=== PATIENT | female | born 1955 | race Caucasian/White ===

== ENCOUNTER 2017-08-10 23:46 | Inpatient (IN) | payer BC ==
[~2017-08-10] VITALS: Ht 165.1 cm; Wt 59.4 kg
[2017-08-10 23:05] VITALS: BP 117/60
[2017-08-10 23:13] VITALS: BP 117/60
[2017-08-11] VITALS (11 sets, daily range): BP systolic 96–120; BP diastolic 49–81
[2017-08-11] MEDS ORDERED: ASPI-1159 PO (00:44)
[2017-08-11] MEDS ORDERED: MORPHINE SULFATE 2 MG/ML CPJ (NOT FOR IM USE) IV PRN (00:45)
[2017-08-11] MEDS ORDERED: DEXTROSE 50% WATER 50ML SYRINGE IV PRN (00:45)
[2017-08-11] MEDS ORDERED: DOCU-138 PO (00:46)
[2017-08-11] MEDS ORDERED: RAMI2.5C10 PO (00:53)
[2017-08-11] MEDS ORDERED: GABA-531 PO (00:53)
[2017-08-11] MEDS ORDERED: FAMO-134 PO (00:53)
[2017-08-11] MEDS ORDERED: ATOR-2 PO (00:53)
[2017-08-11] MEDS ORDERED: HEPARIN 25,000 UNITS PREMIX 500 ML IV SCH (01:30)
[2017-08-11] MEDS ORDERED: HEPARIN BOLUS PRN aPTT <30 IV (03:00)
[2017-08-11] MEDS ORDERED: HEPARIN BOLUS PRN aPTT 30-44 IV (03:00)
[2017-08-11 05:47] LABS: BASOPHILS % 0.6 % (0.0-2.0); EOSINOPHILS % 3.9 % (0.0-5.0); HEMATOCRIT. 44.7 % (36.0-48.0); HEMOGLOBIN. 14.8 g/dL (12.0-16.0); LYMPHOCYTES % 40.1 % (20.0-50.0); MEAN CORPUSCULAR HEMOGLOBIN 29.7 pg (28.0-32.0); MEAN CORPUSCULAR VOLUME 89.5 fL (81.0-99.0); MEAN PLATELET VOLUME 8.3 fl (7.4-10.4); MONOCYTES % 9.8 % (2.0-8.0); NEUTROPHILS % 45.6 % (40.0-76.0); PLATELET 234 x1000/uL (130-400); RED BLOOD CELL COUNT 4.99 mill/uL (4.2-5.4); RED CELL DISTRIBUTION WIDTH 13.3 % (11.6-14.6)
[2017-08-11] MEDS: HEPARIN 25,000 UNITS PREMIX 500 ML IV SCH (06:06)
[2017-08-11 06:22] LABS: CARBON DIOXIDE 27 mEq/L (21-32); CHLORIDE 101 mEq/L (98-107)
[2017-08-11] MEDS: BLOOD SUGAR DIAGNOSTIC STRIP TEST SCH ×4 (06:31→21:09)
[2017-08-11] MEDS: INSULIN LISPRO 100 UNITS/ML SUBCUT SCH ×4 (07:41→20:59)
[2017-08-11] MEDS: CARVEDILOL 6.25 MG TABLET PO SCH ×2 (09:40→21:00)
[2017-08-11] MEDS: ASPIRIN 81MG EC TABLET PO SCH (10:00)
[2017-08-11] MEDS ORDERED: ASPIRIN 81MG EC TABLET PO SCH (20:00)
[2017-08-11] MEDS: FAMOTIDINE 20MG TABLET PO SCH (21:01)
[2017-08-11] MEDS: ATORVASTATIN CALCIUM 40MG TABLET PO SCH (21:01)
[2017-08-11] MEDS: DOCUSATE SODIUM 100MG CAPSULE PO SCH (21:02)
[2017-08-11] MEDS: GABAPENTIN 300MG CAPSULE PO SCH (21:03)
[2017-08-12] VITALS (12 sets, daily range): BP systolic 105–130; BP diastolic 58–82
[2017-08-12] MEDS: BLOOD SUGAR DIAGNOSTIC STRIP TEST SCH ×4 (06:15→20:48)
[2017-08-12] MEDS: INSULIN LISPRO 100 UNITS/ML SUBCUT SCH ×4 (06:15→21:20)
[2017-08-12 06:35] LABS: BASOPHILS % 0.6 % (0.0-2.0); EOSINOPHILS % 3.5 % (0.0-5.0); HEMATOCRIT. 44.3 % (36.0-48.0); HEMOGLOBIN. 14.7 g/dL (12.0-16.0); LYMPHOCYTES % 42.2 % (20.0-50.0); MEAN CORPUSCULAR HEMOGLOBIN 29.9 pg (28.0-32.0); MEAN CORPUSCULAR VOLUME 89.9 fL (81.0-99.0); MEAN PLATELET VOLUME 9.5 fl (7.4-10.4); MONOCYTES % 9.8 % (2.0-8.0); NEUTROPHILS % 43.9 % (40.0-76.0); PLATELET 215 x1000/uL (130-400); RED BLOOD CELL COUNT 4.93 mill/uL (4.2-5.4); RED CELL DISTRIBUTION WIDTH 13.4 % (11.6-14.6)
[2017-08-12 06:52] LABS: CARBON DIOXIDE 26 mEq/L (21-32); CHLORIDE 104 mEq/L (98-107)
[2017-08-12] MEDS: GABAPENTIN 300MG CAPSULE PO SCH ×2 (08:53→17:12)
[2017-08-12] MEDS: CARVEDILOL 6.25 MG TABLET PO SCH ×2 (08:53→21:19)
[2017-08-12] MEDS: FAMOTIDINE 20MG TABLET PO SCH (08:53)
[2017-08-12] MEDS: ASPIRIN 81MG EC TABLET PO SCH (08:53)
[2017-08-12] MEDS: DOCUSATE SODIUM 100MG CAPSULE PO SCH ×2 (08:54→17:12)
[2017-08-12] MEDS: POLYETHYLENE GLYCOL 3350 (17GM) 1 DOSE PACK PO SCH (09:38)
[2017-08-12] MEDS ORDERED: INSULIN DETEMIR UD 100 UNITS/ML SYR SUBCUT SCH (10:30)
[2017-08-12 11:45] LABS: CLARITY URINE CLEAR (CLEAR); COLOR URINE YELLOW (YELLOW); GLUCOSE URINE 3+ (NEGATIVE); KETONES URINE NEGATIVE (NEGATIVE); LEUKOCYTE ESTERASE URINE NEGATIVE (NEGATIVE); NITRITE URINE NEGATIVE (NEGATIVE); OCCULT BLOOD URINE NEGATIVE (NEGATIVE); PH URINE 6.5 (4.5-8.0); PROTEIN URINE NEGATIVE (NEGATIVE); SPECIFIC GRAVITY URINE 1.013 (1.005-1.030)
[2017-08-12 12:04] LABS: *AMPHETAMINES SCREEN URINE NEGATIVE (NEGATIVE); *BARBITURATES SCREEN URINE NEGATIVE (NEGATIVE); *BENZODIAZEPINES SCREEN URINE NEGATIVE (NEGATIVE); *COCAINE SCREEN URINE NEGATIVE (NEGATIVE); CANNABINOID URINE SCREEN NEGATIVE (NEGATIVE); METHADONE URINE SCREEN NEGATIVE (NEGATIVE); OPIATES URINE SCREEN NEGATIVE (NEGATIVE); PHENCYCLIDINE URINE SCREEN NEGATIVE (NEGATIVE)
[2017-08-12] MEDS: HEPARIN 25,000 UNITS PREMIX 500 ML IV SCH (12:53)
[2017-08-12] MEDS: ATORVASTATIN CALCIUM 40MG TABLET PO SCH (21:20)
[2017-08-13] VITALS (12 sets, daily range): BP systolic 93–134; BP diastolic 53–79
[2017-08-13] MEDS: BLOOD SUGAR DIAGNOSTIC STRIP TEST SCH ×4 (07:26→20:37)
[2017-08-13] MEDS: INSULIN LISPRO 100 UNITS/ML SUBCUT SCH ×4 (07:30→20:42)
[2017-08-13] MEDS: FAMOTIDINE 20MG TABLET PO SCH (10:52)
[2017-08-13] MEDS: ASPIRIN 81MG EC TABLET PO SCH (10:52)
[2017-08-13] MEDS: DOCUSATE SODIUM 100MG CAPSULE PO SCH ×2 (10:52→17:48)
[2017-08-13] MEDS: GABAPENTIN 300MG CAPSULE PO SCH ×2 (10:52→17:49)
[2017-08-13] MEDS: INSULIN DETEMIR UD 100 UNITS/ML SYR SUBCUT SCH (10:52)
[2017-08-13] MEDS: POLYETHYLENE GLYCOL 3350 (17GM) 1 DOSE PACK PO SCH (10:53)
[2017-08-13] MEDS: CARVEDILOL 6.25 MG TABLET PO SCH ×2 (10:55→20:36)
[2017-08-13] MEDS: HEPARIN 25,000 UNITS PREMIX 500 ML IV SCH (20:10)
[2017-08-13] MEDS: ATORVASTATIN CALCIUM 40MG TABLET PO SCH (20:36)
[2017-08-13] MEDS ORDERED: BISACODYL 10MG SUPP PR PRN (20:45)
[2017-08-13] MEDS ORDERED: DOCUSATE SODIUM 250MG CAPSULE PO PRN (20:45)
[2017-08-13] MEDS ORDERED: BISACODYL 5MG TABLET PO PRN (20:45)
[2017-08-13] MEDS ORDERED: MAGNESIUM HYDROXIDE 400MG/5ML 30ML UDC PO PRN (20:45)
[2017-08-13] MEDS ORDERED: LACTULOSE 20G/30ML UDC PO PRN (20:45)
[2017-08-14] VITALS (13 sets, daily range): BP systolic 97–118; BP diastolic 50–67
[2017-08-14] MEDS: BLOOD SUGAR DIAGNOSTIC STRIP TEST SCH ×4 (06:58→21:05)
[2017-08-14 07:33] LABS: BASOPHILS % 0.7 % (0.0-2.0); EOSINOPHILS % 2.1 % (0.0-5.0); HEMATOCRIT. 46.9 % (36.0-48.0); HEMOGLOBIN. 15.2 g/dL (12.0-16.0); LYMPHOCYTES % 44.1 % (20.0-50.0); MEAN CORPUSCULAR HEMOGLOBIN 29.2 pg (28.0-32.0); MEAN CORPUSCULAR VOLUME 89.9 fL (81.0-99.0); MEAN PLATELET VOLUME 9.6 fl (7.4-10.4); NEUTROPHILS % 46.1 % (40.0-76.0); PLATELET 181 x1000/uL (130-400); RED BLOOD CELL COUNT 5.21 mill/uL (4.2-5.4); RED CELL DISTRIBUTION WIDTH 13.4 % (11.6-14.6)
[2017-08-14] MEDS: INSULIN LISPRO 100 UNITS/ML SUBCUT SCH ×4 (08:04→21:08)
[2017-08-14] MEDS: GABAPENTIN 300MG CAPSULE PO SCH ×2 (08:06→17:11)
[2017-08-14] MEDS: ASPIRIN 81MG EC TABLET PO SCH (08:06)
[2017-08-14] MEDS: FAMOTIDINE 20MG TABLET PO SCH (08:06)
[2017-08-14] MEDS: DOCUSATE SODIUM 100MG CAPSULE PO SCH ×2 (08:06→17:11)
[2017-08-14] MEDS: POLYETHYLENE GLYCOL 3350 (17GM) 1 DOSE PACK PO SCH (08:09)
[2017-08-14 08:29] LABS: CARBON DIOXIDE 29 mEq/L (21-32); CHLORIDE 98 mEq/L (98-107)
[2017-08-14] MEDS: CARVEDILOL 6.25 MG TABLET PO SCH ×2 (08:34→11:18)
[2017-08-14] MEDS ORDERED: IOHEXOL-350 100 ML BOTTLE ONE (10:13)
[2017-08-14] MEDS: INSULIN DETEMIR UD 100 UNITS/ML SYR SUBCUT SCH (11:19)
[2017-08-14] MEDS: ATORVASTATIN CALCIUM 40MG TABLET PO SCH (21:05)
[2017-08-15] VITALS (23 sets, daily range): BP systolic 94–127; BP diastolic 45–75
[2017-08-15] MEDS: HEPARIN 25,000 UNITS PREMIX 500 ML IV SCH (01:58)
[2017-08-15] MEDS: BLOOD SUGAR DIAGNOSTIC STRIP TEST SCH ×4 (06:02→21:00)
[2017-08-15] MEDS ORDERED: SODIUM CHLORIDE 0.45% 1,000 ML IV SCH (07:00)
[2017-08-15 07:19] LABS: PARTIAL THROMBOPLASTIN TIME 45.3 sec (23.4-31.0); PROTHROMBIN TIME 10.8 sec (9.4-11.6)
[2017-08-15 07:20] LABS: BASOPHILS % 0.7 % (0.0-2.0); EOSINOPHILS % 2.6 % (0.0-5.0); HEMATOCRIT. 46.7 % (36.0-48.0); MEAN CORPUSCULAR HEMOGLOBIN 29.1 pg (28.0-32.0); MEAN CORPUSCULAR VOLUME 90.2 fL (81.0-99.0); MEAN PLATELET VOLUME 9.8 fl (7.4-10.4); MONOCYTES % 6.8 % (2.0-8.0); NEUTROPHILS % 52.9 % (40.0-76.0); PLATELET 172 x1000/uL (130-400); RED BLOOD CELL COUNT 5.17 mill/uL (4.2-5.4); RED CELL DISTRIBUTION WIDTH 13.3 % (11.6-14.6)
[2017-08-15] MEDS: INSULIN LISPRO 100 UNITS/ML SUBCUT SCH ×4 (07:20→21:00)
[2017-08-15 07:55] LABS: CARBON DIOXIDE 29 mEq/L (21-32); CHLORIDE 102 mEq/L (98-107)
[2017-08-15] MEDS ORDERED: IODIXANOL 320MG/ML 200ML BOTTLE ONE (08:03)
[2017-08-15] MEDS ORDERED: LIDOCAINE HCL 1% 20ML VIAL (Pyxis) INJ ONE (08:04)
[2017-08-15] MEDS ORDERED: IOVERSOL 240MG/ML 100ML BOTTLE IV ONE (08:06)
[2017-08-15] MEDS ORDERED: FENTANYL CITRATE/PF 50MCG/ML 2ML VIAL ONE ×2 (08:30→10:56)
[2017-08-15] MEDS ORDERED: MIDAZOLAM HCL 2 MG/2 ML VIAL ONE (08:31)
[2017-08-15] MEDS: CARVEDILOL 6.25 MG TABLET PO SCH ×2 (09:00→21:23)
[2017-08-15] MEDS: GABAPENTIN 300MG CAPSULE PO SCH ×2 (09:00→17:08)
[2017-08-15] MEDS: FAMOTIDINE 20MG TABLET PO SCH (09:00)
[2017-08-15] MEDS: DOCUSATE SODIUM 100MG CAPSULE PO SCH ×3 (09:00→17:08)
[2017-08-15] MEDS: POLYETHYLENE GLYCOL 3350 (17GM) 1 DOSE PACK PO SCH (09:00)
[2017-08-15] MEDS ORDERED: IODIXANOL 320MG/ML 100 ML BOTTLE IV ONE (09:52)
[2017-08-15] MEDS ORDERED: ATROPINE SULFATE 0.1MG/ML 10ML DISP.SYRIN ONE (10:34)
[2017-08-15] MEDS ORDERED: CLOPIDOGREL 75MG TABLET ONE (11:08)
[2017-08-15] MEDS ORDERED: NICARDIPINE 100MCG/ML 10ML VIAL (CATH LAB) IV ONE (11:25)
[2017-08-15] MEDS ORDERED: HEPARIN SODIUM 1,000 UNIT/1ML VIAL IV ONE (11:25)
[2017-08-15] MEDS ORDERED: PHENYLEPHRINE 100MCG/ML 10ML VIAL (CATH LAB) IV ONE (11:25)
[2017-08-15] MEDS ORDERED: NITROGLYCERIN 50MCG/ML 10ML VIAL (CATH LAB) IV ONE (11:25)
[2017-08-15] MEDS: SODIUM CHLORIDE 0.45% 1,000 ML IV SCH ×2 (14:20→19:30)
[2017-08-15] MEDS ORDERED: ZOLPIDEM TARTRATE 5MG TABLET PO PRN (16:00)
[2017-08-15] MEDS: ONDANSETRON HCL 4MG/2ML VIAL IV PRN (18:10)
[2017-08-15] MEDS: ATORVASTATIN CALCIUM 40MG TABLET PO SCH (21:24)
[2017-08-16] VITALS (17 sets, daily range): BP systolic 93–129; BP diastolic 42–70
[2017-08-16] MEDS: SODIUM CHLORIDE 0.45% 1,000 ML IV SCH (03:30)
[2017-08-16] MEDS: ONDANSETRON HCL 4MG/2ML VIAL IV PRN (05:22)
[2017-08-16 05:44] LABS: BASOPHILS % 0.4 % (0.0-2.0); EOSINOPHILS % 0.7 % (0.0-5.0); HEMATOCRIT. 41.6 % (36.0-48.0); HEMOGLOBIN. 13.5 g/dL (12.0-16.0); LYMPHOCYTES % 21.4 % (20.0-50.0); MEAN CORPUSCULAR VOLUME 89.6 fL (81.0-99.0); MEAN PLATELET VOLUME 9.3 fl (7.4-10.4); NEUTROPHILS % 70.5 % (40.0-76.0); PLATELET 153 x1000/uL (130-400); RED BLOOD CELL COUNT 4.64 mill/uL (4.2-5.4); RED CELL DISTRIBUTION WIDTH 13.3 % (11.6-14.6)
[2017-08-16 06:06] LABS: CARBON DIOXIDE 29 mEq/L (21-32); CHLORIDE 104 mEq/L (98-107)
[2017-08-16] MEDS: BLOOD SUGAR DIAGNOSTIC STRIP TEST SCH ×3 (08:51→21:00)
[2017-08-16] MEDS: FAMOTIDINE 20MG TABLET PO SCH (08:52)
[2017-08-16] MEDS: DOCUSATE SODIUM 100MG CAPSULE PO SCH ×2 (08:52→17:00)
[2017-08-16] MEDS: ASPIRIN 325MG EC TABLET PO SCH (08:52)
[2017-08-16] MEDS: GABAPENTIN 300MG CAPSULE PO SCH ×2 (08:52→17:36)
[2017-08-16] MEDS: INSULIN LISPRO 100 UNITS/ML SUBCUT SCH ×4 (08:52→21:09)
[2017-08-16] MEDS: CLOPIDOGREL 75MG TABLET PO SCH (08:52)
[2017-08-16] MEDS: CARVEDILOL 6.25 MG TABLET PO SCH ×2 (08:53→21:00)
[2017-08-16] MEDS: POLYETHYLENE GLYCOL 3350 (17GM) 1 DOSE PACK PO SCH ×2 (08:53→08:55)
[2017-08-16] MEDS: INSULIN DETEMIR UD 100 UNITS/ML SYR SUBCUT SCH (09:19)
[2017-08-16] MEDS: ATORVASTATIN CALCIUM 40MG TABLET PO SCH (21:09)
[2017-08-17] VITALS (8 sets, daily range): BP systolic 95–122; BP diastolic 55–69
[2017-08-17 06:07] LABS: CARBON DIOXIDE 30 mEq/L (21-32); CHLORIDE 103 mEq/L (98-107)
[2017-08-17] MEDS: BLOOD SUGAR DIAGNOSTIC STRIP TEST SCH ×2 (06:26→12:04)
[2017-08-17 06:41] LABS: BASOPHILS % 0.5 % (0.0-2.0); EOSINOPHILS % 1.4 % (0.0-5.0); HEMATOCRIT. 39.6 % (36.0-48.0); HEMOGLOBIN. 13.2 g/dL (12.0-16.0); LYMPHOCYTES % 25.8 % (20.0-50.0); MEAN CORPUSCULAR HEMOGLOBIN 30.1 pg (28.0-32.0); MEAN CORPUSCULAR VOLUME 90.1 fL (81.0-99.0); MEAN PLATELET VOLUME 9.8 fl (7.4-10.4); MONOCYTES % 10.3 % (2.0-8.0); PLATELET 155 x1000/uL (130-400); RED BLOOD CELL COUNT 4.39 mill/uL (4.2-5.4); RED CELL DISTRIBUTION WIDTH 12.9 % (11.6-14.6)
[2017-08-17] MEDS: POLYETHYLENE GLYCOL 3350 (17GM) 1 DOSE PACK PO SCH (09:00)
[2017-08-17] MEDS: DOCUSATE SODIUM 100MG CAPSULE PO SCH (09:32)
[2017-08-17] MEDS: GABAPENTIN 300MG CAPSULE PO SCH (09:32)
[2017-08-17] MEDS: CLOPIDOGREL 75MG TABLET PO SCH (09:32)
[2017-08-17] MEDS: CARVEDILOL 6.25 MG TABLET PO SCH (09:33)
[2017-08-17] MEDS: ASPIRIN 325MG EC TABLET PO SCH (09:33)
[2017-08-17] MEDS: FAMOTIDINE 20MG TABLET PO SCH (09:33)
[2017-08-17] MEDS: INSULIN LISPRO 100 UNITS/ML SUBCUT SCH ×2 (09:35→12:51)
[2017-08-17] MEDS: INSULIN DETEMIR UD 100 UNITS/ML SYR SUBCUT SCH (09:36)
== END 2017-08-17 13:19 | disposition home or self-care (01) | DRG 215 ==
LOC: 3WST 23:46 → CVICU 08-15 10:51 → 3WST 08-16 12:30
PROVIDERS: ADMIT Family Medicine; ATTEND Family Medicine
PROC: 02HA3RZ Insertion of Short-term External Heart Assist System into Heart, Percutaneous Approach (ICD-10-PCS; principal; 2017-08-15)
PROC: 027137Z Dilation of Coronary Artery, Two Arteries with Four or More Drug-eluting Intraluminal Devices, Percutaneous Approach (ICD-10-PCS; 2017-08-15)
PROC: B2111ZZ Fluoroscopy of Multiple Coronary Arteries using Low Osmolar Contrast (ICD-10-PCS; 2017-08-15)
PROC: 02PA3RZ Removal of Short-term External Heart Assist System from Heart, Percutaneous Approach (ICD-10-PCS; 2017-08-15)
PROC: 5A0221D Assistance with Cardiac Output using Impeller Pump, Continuous (ICD-10-PCS; 2017-08-15)
PROC: 4A023N7 Measurement of Cardiac Sampling and Pressure, Left Heart, Percutaneous Approach (ICD-10-PCS; 2017-08-15)
DX: I21.4 Non-ST elevation (NSTEMI) myocardial infarction (principal); I11.0 Hypertensive heart disease with heart failure; E11.9 Type 2 diabetes mellitus without complications; I25.5 Ischemic cardiomyopathy; I25.10 Atherosclerotic heart disease of native coronary artery without angina pectoris; I10 Essential (primary) hypertension; E78.5 Hyperlipidemia, unspecified; F17.210 Nicotine dependence, cigarettes, uncomplicated; I25.2 Old myocardial infarction; Z79.4 Long term (current) use of insulin; Z95.5 Presence of coronary angioplasty implant and graft
CPT/HCPCS: 33990; 36415; 71010; 74174; 80048; 80305; 81001; 82962; 85025; 85347; 85610; 85730; 92928; 92929; 93005; 93306; 93458; 93970; C1725; C1760; C1769; C1874; C1887; C1893; J0461; J1644; J1815; J2250; J2370; J2405; J3010; J3490; J7030; J7060; Q9967

== ENCOUNTER → 2018-05-30 | Outpatient (CLI) | payer BC ==
[~2018-05-30] MED LIST: ASPI-1159 PO; ATOR-2 PO; DOCU-138 PO; FAMO-134 PO; GABA-531 PO; RAMI2.5C10 PO; REGADENOSON 0.4 MG/5 ML IV ONE
== END | disposition home or self-care (01) ==
LOC: NM 05-28 06:27
PROVIDERS: ATTEND Specialist
DX: R07.89 Other chest pain (principal)
CPT/HCPCS: 78452; 93017; A9500; J2785